=== PATIENT | female | born 1965 | race Caucasian/White ===

== ENCOUNTER 2025-10-07 06:44 | Emergency (ER) | payer OTHER, SELFPAY ==
--- NOTE | ~2025-10-07 | XR_ITS ---
EXAMINATION: XR HIP 1 VIEW LEFT WITH PELVIS, XR FEMUR 2 VIEWS LEFT HISTORY: pain COMPARISON: There are no prior studies available for comparison. FINDINGS: A single AP view of the pelvis, 2 views of the left hip, and AP and lateral views of the left femur are submitted. Osseous mineralization is normal. There is no fracture or dislocation. There is mild narrowing of the joint space. The remainder of the femur is intact without evidence of fracture. There is mild degenerative change of the knee. XR/XR hip LT w PEL1V IMPRESSION: Mild degenerative changes of the left hip and knee joints. No fracture. Electronically signed by: Neil Paniagua MD 10/07/2025 09:04 AM [facility]
--- NOTE | ~2025-10-07 | XR_ITS ---
EXAMINATION: XR LUMBAR SPINE 2-3 VIEWS HISTORY: low back pain COMPARISON: There are no prior studies for comparison. FINDINGS: AP, lateral, and coned down views of the lumbar spine are submitted. Osseous mineralization is normal. Five nonrib-bearing lumbar vertebral bodies are identified, maintaining normal height without evidence of fracture. There is slight spondylolisthesis of L5 on S1. There is mild degenerative disc disease with disc space narrowing and osteophyte formation. There is osteoarthritis of the facet joints. The visualized paraspinal soft tissues are unremarkable. XR/XR lumbar spine 2-3V IMPRESSION: Mild degenerative disc disease. Slight spondylolisthesis of L5 on S1. Electronically signed by: Neil Paniagua MD 10/07/2025 09:05 AM [facility]
--- NOTE | ~2025-10-07 | XR_ITS ---
EXAMINATION: XR HIP 1 VIEW LEFT WITH PELVIS, XR FEMUR 2 VIEWS LEFT HISTORY: pain COMPARISON: There are no prior studies available for comparison. FINDINGS: A single AP view of the pelvis, 2 views of the left hip, and AP and lateral views of the left femur are submitted. Osseous mineralization is normal. There is no fracture or dislocation. There is mild narrowing of the joint space. The remainder of the femur is intact without evidence of fracture. There is mild degenerative change of the knee. XR/XR femur LT 2V IMPRESSION: Mild degenerative changes of the left hip and knee joints. No fracture. Electronically signed by: Neil Paniagua MD 10/07/2025 09:04 AM [facility]
[2025-10-07 06:52] VITALS: BP 144/86; PULSE 84; RESP 18; TEMP 36.4; O2SAT 97; BMI 29.3
--- NOTE | 2025-10-07 08:26 | ED_ITS ---
HPI - General Adult General Chief complaint: Back Pain/Injury Stated complaint: hard time walking Time Seen by Provider: 10/07/25 10:05 Source: patient Mode of arrival: ambulatory Limitations: no limitations History of Present Illness ED Provider: Bella Carter PA-C HPI narrative: Patient is a 60 year old assigned female at with no reported medical history presenting to the emergency department today with left upper leg pain. Patient states that over the last 6 days she has had left upper leg pain that originally started in her low back and she felt some of it in her hip. Patient states that she has been doing a lot of house work / cleaning to prepare for holidays and a republican. Patient denies any other complaints at this time. Relieving factors: none Related Data Previous Rx's ?Medication ?Instructions ?Recorded cyclobenzaprine 5 mg tablet 5 mg PO TID PRN muscle spa sm 7 10/07/25 days #21 tabs prednisone 20 mg tablet 40 mg (2 x 20 mg) PO DAILY C OPD 10/07/25 exacerbation 5 days #10 tabs Allergies Allergy/AdvReac Type Severity Reaction Status Date / Time No Known Allergies Allergy Verified 10/07/25 06:58 Review of Systems Constitutional: Constitutional: Reports as per HPI Eyes: Eyes: Reports as per HPI ENT: Reports as per HPI Cardiovascular: Cardiovascular: Reports as per HPI Respiratory: Respiratory: Reports as per HPI Gastrointestinal: Gastrointestinal: Reports as per HPI Genitourinary: Genitourinary: Reports as per HPI Musculoskeletal: Musculoskeletal: Reports as per HPI Integumentary/Breasts: Skin/Breast: Reports as per HPI Neurologic: Reports as per HPI Psychiatric: Psychiatric: Reports as per HPI Endocrine: Endocrine: Reports as per HPI Hematologic/Lymphatic: Hematologic/Lymphatic: Reports as per HPI Allergic/Immunologic: Allergic/Immunologic: Reports as per HPI PMF Past Medical History Attestation statement: The following information was validated with the patient. Source: old records reviewed and nursing notes reviewed Social History Social History Advance Directives: No Advance Directives Information Provided: Yes Do you have a plan to hurt others: No Plan Physical Exam ED Vital Signs: Vital Signs - 24 hr 10/07/25 06:52 10/07/25 08:28 10/07/25 10:07 Temperature 97.6 F 98.1 F Pulse Rate 84 86 69 Respiratory Rate 18 18 16 Blood Pressure 144/86 H 185/91 H 145/82 H Pulse Oximetry 97 95 96 Oxygen Delivery Method Room Air Room Air Room Air 10/07/25 10:24 Temperature 98.1 F Pulse Rate 69 Respiratory Rate 16 Blood Pressure 145/82 H Pulse Oximetry 96 Oxygen Delivery Method Room Air BMI result Body Mass Index 29.3 Const General: cooperative, no acute distress, alert and awake Nutritional Appearance: well nourished Orientation/consciousness: patient oriented x3 HENMT Head: Yes normal to inspection and Yes atraumatic Ears: hearing grossly normal bilaterally and external ears normal General nose exam: Normal external nose present, no nasal discharge noted and no epistaxis Face and sinus: Yes normal facial exam, No abrasion and No laceration Mouth: Normal oral and palatal mucosa present, no drooling and no muffled voice Eyes General: appearance normal, both eyes and all related structures Periorbital: periorbital findings normal Eyelids: Yes eyelids normal Conjunctivae: conjunctivae normal Pupils: Equal, round and reactive pupils present EOM: EOMs intact bilaterally Neck Neck: Yes normal visual inspection and Yes full ROM Resp Effort & Inspection: normal respiratory effort and able to speak in complete sentences Neuro General: patient oriented x3, moves all extremities and CN's II-XI intact bilaterally Cranial nerves: Yes Equal, round and reactive pupils present Cognition (Neuro): normal cognition Extrem General: Yes normal to inspection, Yes full ROM and Yes capillary refill normal Psych Appearance: grossly normal Mental Status: mental status grossly normal Affect: normal affect Attitude: cooperative Thought process: Normal thought process present Thought content: Normal thought content present Insight: Good insight present (Psych) Course Course Course Narrative: Rapid medical examination performed in triage by Bella Carter PA-C: Patient is a 60 year old assigned female at presenting to the emergency department with left upper leg pain. Detailed physical exam and review of systems are deferred to the rehabilitation teacher. Imaging ordered. Patient placed back in the waiting room pending room availability and results. Medications Administered Discontinued Medications Generic Name Dose Route Start Last Admin Trade Name Freq PRN Reason Stop Dose Admin Ketorolac Tromethamine 15 mg 10/07/25 10:05 10/07/25 10:17 Ketorolac Tromethamine 15 Mg/Ml Vial IM 10/07/25 10:06 15 mg ONCE ONE Administration Methylprednisolone Sodium Succinate 60 mg 10/07/25 10:05 10/07/25 10:17 Methylprednisolone Sod Succ 125 Mg/2 Ml Vial IM 10/07/25 10:06 60 mg ONCE ONE Administration Medical Decision Making Medical Decision Making [facility] Narrative: Patient is a 60 year old assigned female at with no reported medical history presenting to the emergency department today with left upper leg pain. Patient's physical exam was as noted in the physical exam portion of this note. Patient's lumbar spine, left hip / pelvis, and left femur x-rays showed no acute process but did show some evidence of arthritis. Patient's clinical presentation is most consistent with lumbar radiculopathy Patient received IM Toradol and Solu-medrol while in the department and was prescribed Flexeril and prednisone. I explained my physical exam findings as well as all test results to the patient. I answered all questions asked by the patient. I stressed the importance of the patient taking her medication as directed (either prescribed or as the over the counter packaging recommends). I stressed the importance of the patient following up with her primary care provider. I stressed the importance of the patient returning to the emergency department immediately if her symptoms were to worsen or if she were to develop any dizziness, shortness of breath, difficulty breathing, chest pain, blurry vision, loss of vision, nausea, vomiting, abdominal pain, fever, chills, back pain, or any other complaints. Patient verbalized agreement and understanding with this treatment plan and discharge. Differential Diagnosis Differential Diagnoses: The differential diagnosis associated with the presentation includes Lumbar radiculopathy Low back pain Femur pain Hip pain Admission/Observation Consideration of admission/observation: Escalation of care including admission/observation considered Patient would have been admitted to the hospital had her work up had any findings where hospital admission was appropriate and her clinical presentation warranted hospital admission. Independent Interpretation I performed an independent interpretation of an: Plain X-Ray Interpretation: My interpretation is in agreement with the radiologist's impression of these imaging studies as written below. EXAMINATION: XR LUMBAR SPINE 2-3 VIEWS HISTORY: low back pain COMPARISON: There are no prior studies for comparison. FINDINGS: AP, lateral, and coned down views of the lumbar spine are submitted. Osseous mineralization is normal. Five nonrib-bearing lumbar vertebral bodies are identified, maintaining normal height without evidence of fracture. There is slight spondylolisthesis of L5 on S1. There is mild degenerative disc disease with disc space narrowing and osteophyte formation. There is osteoarthritis of the facet joints. The visualized paraspinal soft tissues are unremarkable. XR/XR lumbar spine 2-3V IMPRESSION: Mild degenerative disc disease. Slight spondylolisthesis of L5 on S1. Electronically signed by: Neil Paniagua MD 10/07/2025 09:05 AM EST Dictated By: Neil Paniagua MD Signed By: Electronically signed by Neil Paniagua MD 10/07/25 0905 EXAMINATION: XR HIP 1 VIEW LEFT WITH PELVIS, XR FEMUR 2 VIEWS LEFT HISTORY: pain COMPARISON: There are no prior studies available for comparison. FINDINGS: A single AP view of the pelvis, 2 views of the left hip, and AP and lateral views of the left femur are submitted. Osseous mineralization is normal. There is no fracture or dislocation. There is mild narrowing of the joint space. The remainder of the femur is intact without evidence of fracture. There is mild degenerative change of the knee. XR/XR femur LT 2V IMPRESSION: Mild degenerative changes of the left hip and knee joints. No fracture. Electronically signed by: Neil Paniagua MD 10/07/2025 09:04 AM EST RP Dictated By: Neil Paniagua MD Signed By: Electronically signed by Neil Paniagua MD 10/07/25 0904 Radiology Impression Discussion of test interpretation with radiology: I have reviewed the radiologist's reading. Prescription Management I considered prescription management with: Pain Medication (patient prescribed pain medication) Discharge Plan Discharge Clinical Impression: Lumbar radiculopathy Patient Disposition: Home, Self-Care Instructions: Lumbar Radiculopathy (ED), Lower Back Exercises (ED) Additional Instructions: Your x-rays showed some arthritis but were otherwise unremarkable. IF you are prescribed home medications and/or you are taking over the counter medications at home - it is very important you continue to do so as prescribed / directed unless told otherwise by a healthcare provider. Follow up with your primary care provider. Do your best to stay well hydrated and rest. Return to the emergency department immediately if your symptoms worsen or if you develop any numbness, tingling, dizziness, shortness of breath, difficulty breathing, chest pain, blurry vision, loss of vision, nausea, vomiting, abdominal pain, fever, chills, back pain, or any other complaints. If you do not have a primary care provider - call any of the below numbers to establish and follow up with a primary care provider. [facility] ([place]) [phone] [place] [address], [address] [facility] ([address] [place]) [phone] [place] [address], [address] [facility], [address] [facility] ([address] [place]) [phone] [place] [address], [address] [facility], [address] [facility] ([place]) [phone] [place] [address] [address] [facility], [address] [facility] Family Medicine [phone] [place] [address], [address] Please see the information below about our Patient Portal. If you are not yet enrolled in the [facility] Patient Portal, you will receive an enrollment email invitation following your visit to any [facility] setting. You may also self-enroll in the Patient Portal by visiting our website: [email or web address] The following information is required to access the Patient Portal: - Your [facility] Medical Record Number - Your personal home email address (must match what is in your electronic medical record, Registration staff can assist with this) - Name - Date of Capabilities of the Patient Portal: - Message some providers - View upcoming appointments - Access your health summary, medical history, and visit history - View current conditions and allergies - View procedure and lab results - View your medications, including guidelines, side effects, and precautions - Complete pre-appointment questionnaires requested by your provider - Ready summary reports of your office visits and procedures To access the Patient Portal Mobile Harriet, follow these directions: - Search [employer] in the Harriet Store or Google Play Store - Download the Harriet - Search for [facility] - Enter your login/password Prescriptions: New cyclobenzaprine 5 mg tablet 5 mg PO TID PRN (Reason: muscle spasm) 7 Days Qty: 21 0RF prednisone 20 mg tablet 40 mg PO DAILY 5 Days Qty: 10 0RF Interventions: ED Discharge Assessment Last Done: 10/07/25 10:24 Discharge Date/Time: 10/07/25 10:25 Print Language: Citizen Of [place]
[2025-10-07 08:28] VITALS: BP 185/91; PULSE 86; RESP 18; TEMP 36.7; O2SAT 95
[2025-10-07 10:07] VITALS: BP 145/82; PULSE 69; RESP 16; O2SAT 96
--- NOTE | 2025-10-07 10:07 | PC.NURSE ---
Pt A&O X4 ambulates from [facility] well without assist. VSS states she took Ibuprofen at 6am today. Pain 8/10 ambulating 3/10 at rest.
[2025-10-07 10:24] VITALS: BP 145/82; PULSE 69; RESP 16; TEMP 36.7; O2SAT 96
== END 2025-10-07 10:25 | disposition home or self-care (01) ==
LOC: HO.ED 10:19
PROVIDERS: Emergency Provider Emergency Medicine
DX: M54.16 Radiculopathy, lumbar region (principal); R26.2 Difficulty in walking, not elsewhere classified; M25.552 Pain in left hip; M79.605 Pain in left leg; M54.50 Low back pain, unspecified
CPT/HCPCS: 72100; 73502; 73552; 96372; 99284; J1885; J2919

== ENCOUNTER → 2025-10-07 08:29 | Outpatient (BNV) | payer SELFPAY | PROVIDERS: Visit Provider Radiology Diagnostic Radiology | DX: M16.12 Unilateral primary osteoarthritis, left hip (principal); M51.360 Other intervertebral disc degeneration, lumbar region with discogenic back pain only; M43.17 Spondylolisthesis, lumbosacral region | CPT/HCPCS: 72100; 73502; 73552 ==